=== PATIENT | male | born 1995 | race Native Hawaiian/Other Pacific Islander ===

== ENCOUNTER 2016-07-25 11:49 | Emergency (ER) | payer OTHER ==
[~2016-07-25] VITALS: Ht 185.4 cm; Wt 72.6 kg
[2016-07-25 13:02] LABS: PLATELET COUNT 325 K/uL (142-355)
[2016-07-25 13:13] LABS: POTASSIUM 3.8 mmol/L (3.6-5.2); SODIUM 136 mmol/L (136-145)
[2016-07-25 16:21] VITALS: BP 128/82; TEMP 98
== END 2016-07-25 16:21 | disposition home or self-care (01) ==
LOC: ED 11:49
PROVIDERS: Specialist
DX: R10.30 Lower abdominal pain, unspecified (principal); K52.9 Noninfective gastroenteritis and colitis, unspecified
CPT/HCPCS: 36415; 80053; 82272; 85027; 99283; Q9963

== ENCOUNTER 2018-05-09 22:34 | Emergency (ER) | payer OTHER ==
[~2018-05-09] VITALS: Ht 182.9 cm; Wt 86.6 kg
[2018-05-09 23:37] VITALS: BP 135/84; TEMP 98.4
== END 2018-05-09 23:39 | disposition home or self-care (01) ==
LOC: ED 22:34
DX: M54.12 Radiculopathy, cervical region (principal)
CPT/HCPCS: 96372; 99283; J1885; J2360

== ENCOUNTER 2018-10-23 22:55 | Emergency (ER) | payer OTHER ==
[~2018-10-23] VITALS: Ht 182.9 cm; Wt 77.1 kg
[2018-10-24 00:10] VITALS: BP 125/698; TEMP 98.1
== END 2018-10-24 00:25 | disposition home or self-care (01) ==
LOC: ED 22:55
DX: M25.511 Pain in right shoulder (principal); W22.8XXA Striking against or struck by other objects, initial encounter; Y93.61 Activity, american tackle football; Y92.89 Other specified places as the place of occurrence of the external cause
CPT/HCPCS: 99283

== ENCOUNTER 2022-06-27 14:00 | Emergency (ER) | payer OTHER ==
[~2022-06-27] VITALS: Ht 182.9 cm; Wt 90.7 kg
[2022-06-27 16:02] VITALS: BP 144/80; TEMP 98.5
== END 2022-06-27 16:02 | disposition home or self-care (01) ==
LOC: ED 14:00
PROC: 2W3CX1Z Immobilization of Right Lower Arm using Splint (ICD-10-PCS; principal; 2022-06-27)
DX: S60.221A Contusion of right hand, initial encounter (principal); S86.811A Strain of other muscle(s) and tendon(s) at lower leg level, right leg, initial encounter; Y04.0XXA Assault by unarmed brawl or fight, initial encounter; Y92.89 Other specified places as the place of occurrence of the external cause
CPT/HCPCS: 90715; 99283

== ENCOUNTER 2022-10-10 11:26 | Emergency (ER) | payer OTHER ==
[~2022-10-10] VITALS: Ht 182.9 cm; Wt 81.6 kg
[2022-10-10 11:32] VITALS: BP 142/83; TEMP 98.9
[2022-10-10 12:55] LABS: PLATELET COUNT 265 K/uL (142-355)
[2022-10-10 12:57] LABS: PARTIAL THROMBOPLASTIN TIME 40.1 SECONDS (23.9-36.7)
[2022-10-10 12:58] LABS: POTASSIUM 3.6 mmol/L (3.6-5.2)
== END 2022-10-10 15:49 | disposition home or self-care (01) ==
LOC: ED 11:26
PROVIDERS: Family Medicine
DX: J03.90 Acute tonsillitis, unspecified (principal); R59.9 Enlarged lymph nodes, unspecified; R10.9 Unspecified abdominal pain; R06.02 Shortness of breath
CPT/HCPCS: 36415; 36600; 80053; 82805; 83605; 85027; 85610; 85730; 87040; 87502; 87635; 87651; 93005; 94664; 96374; 96375; 99284; J1100; J1885; J2405; J3490; Q9963; U0003